=== PATIENT | male | born 1975 | race Caucasian/White ===

== ENCOUNTER 2021-05-18 09:51 | Outpatient (CLI) | payer BC, SELFPAY ==
--- NOTE | 2021-05-18 09:52 | EKG12_ITS ---
Test Reason : PRE OP Blood Pressure : / mmHG Vent. Rate : 071 BPM Atrial Rate : 071 BPM P-R Int : 148 ms QRS Dur : 084 ms QT Int : 386 ms P-R-T Axes : 046 010 023 degrees QTc Int : 419 ms Normal sinus rhythm Normal ECG Confirmed by MAXWELL MORENO, JOVANNY ([id number]), international editorial producer LENA ROSE ([id number]) on 05/18/2021 1:34:59 PM Referred By: James Lizarraga Confirmed By:DINORAH ARREOLA MD
== END 2021-05-18 23:59 | disposition home or self-care (01) ==
PROVIDERS: Referring Provider Physician Assistant; Visit Provider Physician Assistant
DX: Z01.810 Encounter for preprocedural cardiovascular examination (principal); Z01.818 Encounter for other preprocedural examination
CPT/HCPCS: 87426; 93005; C9803